=== PATIENT | male | born 1980 | race Caucasian/White ===

== ENCOUNTER 2020-03-31 09:59 | Emergency (ER) | payer OTHER ==
[~2020-03-31] VITALS: Ht 182.9 cm; Wt 102.5 kg
[2020-03-31] MEDS ORDERED: CEFAZOLIN 1,000 MG IM ONE (10:30)
[2020-03-31] MEDS ORDERED: LIDOCAINE 1%-EPI 1:100K, 20ML SQ ONE (10:30)
[2020-03-31] MEDS ORDERED: LIDOCAINE 1%-EPI 1:100K, 20ML ONE (10:37)
[2020-03-31] MEDS ORDERED: SULF1TAB23 PO (11:13)
--- NOTE | 2020-03-31 11:15 | NUR ---
PA at bedside for I and D. Pt comfortable, wounds irrigated, VSWNL.
[2020-03-31] MEDS ORDERED: CEFAZOLIN 1,000 MG ONE (11:52)
--- NOTE | 2020-03-31 12:01 | NUR ---
Pt without complaint at this time. Wounds dressed, ABX given. VSWNL.
[2020-03-31 12:02] VITALS: BP 119/79
== END 2020-03-31 12:22 | disposition home or self-care (01) ==
LOC: ED 10:11
DX: S00.05XA Superficial foreign body of scalp, initial encounter (principal); S50.852A Superficial foreign body of left forearm, initial encounter; L02.811 Cutaneous abscess of head [any part, except face]; L02.414 Cutaneous abscess of left upper limb; W34.00XA Accidental discharge from unspecified firearms or gun, initial encounter; Y93.89 Activity, other specified; Y92.89 Other specified places as the place of occurrence of the external cause; Y99.8 Other external cause status
CPT/HCPCS: 10120; 96372; 99285; J0690